=== PATIENT | female | born 1990 | race Two or more races ===

== ENCOUNTER 2018-07-19 08:56 | Emergency (ER) | payer MEDICAID ==
[~2018-07-19] VITALS: Wt 60.6 kg
[2018-07-19 09:09] VITALS: BP 119/58; PULSE 69; RESP 20
[2018-07-19] MEDS ORDERED: IBUP-1542 PO (09:32)
[2018-07-19] MEDS ORDERED: AMOX500C2 PO (09:32)
--- NOTE | 2018-07-19 10:30 | ERD ---
ER Documentation Chief Complaint Chief Complaint r. sided facial pain, neg neuro def in triage HPI This is a very pleasant 28-year-old female with no past medical history. The patient presents to the emergency department stating that for the past 48 hours she has been experiencing right-sided facial pain. She stated the pain began over her right cheek. She stated it was a lightening-like sensation. However she denied a headache. She had no fevers or shaking or chills. She denies any toothache. She denies any swelling or redness to the face. She did indicate t his morning when she woke she started to complain of pain in her right ear. She denies any changes in taste. She denies any numbness of her face. She has no weakness of her upper or lower extremities. ROS All systems reviewed and are negative except as per history of present illness. Medications Home Meds Active Scripts Amoxicillin* (Amoxicillin*) 500 Mg Cap, 500 MG PO BID, #14 CAP Prov:ZAIN RENEE MD 07/19/18 Ibuprofen* (Motrin*) 600 Mg Tab, 600 MG PO Q6H PRN for PAIN AND OR ELEVATED TEMP, #30 TAB Prov:ZAIN RENEE MD 07/19/18 Allergies Allergies: Uncoded Allergies: SULFA (Allergy, Unknown, 07/19/18) PMhx/Soc Medical and Surgical Hx: pt denies Medical Hx, pt denies Surgical Hx Hx Alcohol Use: No Hx Substance Use: No Hx Tobacco Use: No Smoking Status: Never smoker Physical Exam Vitals Vital Signs Date Temp Pulse Resp B/P (MAP) Pulse Ox O2 O2 Flow FiO2 Time Delivery Rate 07/19/18 97.6 69 20 119/58 100 09:09 (78) Physical Exam Constitutional:Well-developed. Well-nourished. HEENT:Normocephalic. Atraumatic.Pupils were equal round reactive to light. Moist mucous membranes.No tonsillar exudates. No tenderness with palpation of the teeth and no discoloration of the teeth. No brawny induration. No trismus. Bulging erythema of the right tympanic membrane Neck: No nuchal rigidity. No lymphadenopathy. No posterior cervical spine tenderness or step-offs. Respiratory: Not using accessory muscles of respiration.Lungs were clear to auscultation bilaterally. No rhonchi. No rales. No wheezing. Cardiovascular: Regular rate regular rhythm.No murmurs. No rubs were appreciated.S1, S2 normal. Distal pulses are palpable 2+ bilaterally. GI: Abdomen was soft. Nontender. Non Distended. No pulsatile abdominal masses or bruits. No rebound. No guarding. Bowel sounds were present and normal. Muscle skeletal: Full range of motion of both the upper and lower extremities bilaterally.Normal muscle tone.No assymetrical calf tenderness or swelling. Skin: No petechia, no purpura. No lesions on the palms or the soles of the feet. No maculopapular rash. NEURO: Patient was alert, awake, orientated x3.No facial droop. Gait observed and normal with no ataxia.Speech had regular rate and rhythm. No focal neurological deficits. Procedures/MDM This is a very pleasant 28-year-old female that presented to the emergency department with right-sided facial pain and physical exam findings suggestive of otitis media. The patient did not have any specific tenderness or skull exam findings to suggest trigeminal neuralgia or TMJ. The patient did not have any strokelike symptoms to suggest Dominguez's palsy or a cerebrovascular accident. I did feel the patient be safely discharged home with a trial of antibiotics. She was instructed to return to the emergency department immediately if there is any worsening of her symptoms. She was sent home with a prescription of anti- inflammatories. The patient was discharged home in fair condition. They were instructed to return to the emergency department at any time if there was any worsening of their condition. The patient stated they would follow up with their PCP in the next 24-48 hours to initiate a suitable medication regimen under the care of their PCP as well as to allow their PCP to monitor any drug reactions. The patient was discharged home with prescriptions after they gave informed consent to the new medication. They were also fully informed by myself on the adverse effects and adverse drug interactions in order to provide adequate safeguards to prevent possible adverse reactions to medications. Departure Diagnosis: Primary Impression: Otitis media Otitis media type: unspecified Laterality: right Qualified Codes: H66.91 - Otitis media, unspecified, right ear Condition: Fair ZAIN RENEE MD Jul 19, 2018 10:29
== END 2018-07-19 12:37 | disposition home or self-care (01) ==
LOC: E/R 08:56
DX: H66.91 Otitis media, unspecified, right ear (principal)
CPT/HCPCS: 99283

== ENCOUNTER 2018-08-12 18:18 | Emergency (ER) | payer MEDICAID ==
[~2018-08-12] VITALS: Ht 154.9 cm; Wt 60.1 kg
[~2018-08-12 18:18] MED LIST: AMOX500C2 PO; IBUP-1542 PO
[2018-08-12 18:38] VITALS: Ht 154.9 cm; Wt 60.1 kg
[2018-08-12] MEDS ORDERED: IBUPROFEN 600 MG TAB PO ONE (20:00)
[2018-08-12] MEDS ORDERED: IBUP-1542 PO (21:18)
--- NOTE | 2018-08-12 21:22 | ERD ---
ER Documentation Chief Complaint Chief Complaint RIGHT EAR PAIN HPI 28-year-old female presents with headache and pain within the right ear over the last 2 weeks. She was treated with antibiotics without relief. She has cough, fevers, discharge, sore throat, chest pain, abdominal pain, additional symptoms. ROS All systems reviewed and are negative except as per history of present illness. Medications Home Meds Active Scripts Ibuprofen* (Motrin*) 600 Mg Tab, 600 MG PO Q6, #15 TAB Prov:MIGDALIA MITCHELL MD 08/12/18 Amoxicillin* (Amoxicillin*) 500 Mg Cap, 500 MG PO BID, #14 CAP Prov:ZAIN RENEE MD 07/19/18 Ibuprofen* (Motrin*) 600 Mg Tab, 600 MG PO Q6H PRN for PAIN AND OR ELEVATED TEMP, #30 TAB Prov:ZAIN RENEE MD 07/19/18 Allergies Allergies: Uncoded Allergies: SULFA (Allergy, Unknown, 07/19/18) PMhx/Soc Medical and Surgical Hx: pt denies Medical Hx History of Surgery: Yes () Hx Alcohol Use: No Hx Substance Use: No Hx Tobacco Use: No Smoking Status: Never smoker FmHx Family History: No diabetes, No coronary disease, No other Physical Exam Vitals Vital Signs Date Temp Pulse Resp B/P (MAP) Pulse Ox O2 O2 Flow FiO2 Time Delivery Rate 08/12/18 98.7 54 19 96/54 (68) 100 18:38 Physical Exam Const: No acute distress Head: Atraumatic Eyes: Normal Conjunctiva ENT: Normal External Ears, Nose and Mouth. TMs normal. No appreciable reproducible tenderness. No TMJ. No appreciable dental lesions or tenderness. Neck: Full range of motion. No meningismus. Resp: Clear to auscultation bilaterally Cardio: Regular rate and rhythm, no murmurs Abd: Soft, non tender, non distended. Normal bowel sounds Skin: No petechiae or rashes Back: No midline or flank tenderness Ext: No cyanosis, or edema Neur: Awake and alert Psych: Normal Mood and Affect Results 24 hrs Current Medications Medications Dose Sig/Raoul Start Time Status Last (Trade) Ordered Route PRN Stop Time Admin Dose Reason Admin Ibuprofen 600 mg ONCE ONCE 08/12/18 DC 08/12/18 (Motrin) PO 20:00 19:46 08/12/18 20:01 Procedures/MDM Patient presents with right ear pain and headache of uncertain etiology. She describes the pain is deep within her ear. Is no identifiable reproducible pain or abnormalities. Patient has pain of uncertain etiology. Therefore CT brain and orbits was performed which shows no abnormalities. Patient is otherwise well-appearing amatory without deficits, additional concerning signs or symptoms. Will treat with ibuprofen, further observation at home and return precautions. The patient was stable with no new complaints during the ER course. Clinically, there is no current evidence to suggest meningitis, sepsis, acute abdomen, pneumonia, stroke, acute coronary syndrome, pulmonary embolism, aortic dissection or any other emergent condition appearing to require further evaluation or hospitalization. Patient counseled regarding my diagnostic impression and care plan. Prior to discharge all questions answered. Pt agrees with treatment plan and understands strict return precautions. Pt is instructed to follow up with primary care provider within 24-48 hours. Precautionary instructions provided including instructions to return to the ER if not improving or for any worsening or changing symptoms or concerns. Departure Diagnosis: Primary Impression: Right ear pain Condition: Stable Patient Instructions: Headache, Unspecified, Symptoms With Uncertain Cause Additional Instructions: Examinations normal today. Uncertain cause of symptoms. Follow-up with primary doctor return for fevers, chest pain, shortness breath, new or worsening symptoms. MIGDALIA MITCHELL MD Aug 12, 2018 21:22
[2018-08-12 21:41] VITALS: BP 94/56; PULSE 54; RESP 18
== END 2018-08-12 21:43 | disposition home or self-care (01) ==
LOC: FTE 18:18
DX: H92.01 Otalgia, right ear (principal)
CPT/HCPCS: 70450; 70480; Z7502; Z7610

== ENCOUNTER 2018-12-28 17:44 | Emergency (ER) | payer MEDICAID, OTHER ==
[~2018-12-28] VITALS: Ht 165.1 cm; Wt 60.0 kg
[2018-12-28 17:51] VITALS: BP 104/58; PULSE 63; RESP 18; Ht 165.1 cm; Wt 60.0 kg
== END 2018-12-28 19:45 | disposition home or self-care (01) ==
LOC: FTE 17:44
DX: R07.0 Pain in throat (principal); Z00.00 Encounter for general adult medical examination without abnormal findings
CPT/HCPCS: 87880; Z7502; 99283

== ENCOUNTER 2019-02-15 12:07 | Emergency (ER) | payer OTHER ==
[~2019-02-15] VITALS: Ht 160 cm; Wt 56.4 kg
[~2019-02-15 12:07] MED LIST changes: +HC30CR25 TOP; +PSYL1040 PO
[2019-02-15 12:15] VITALS: BP 95/54; PULSE 61; RESP 18; Ht 160 cm; Wt 56.4 kg
== END 2019-02-15 14:37 | disposition home or self-care (01) ==
LOC: FTE 12:07
DX: K64.4 Residual hemorrhoidal skin tags (principal); F17.210 Nicotine dependence, cigarettes, uncomplicated; Z76.0 Encounter for issue of repeat prescription
CPT/HCPCS: 99281